=== PATIENT | female | born 1985 | race Native Hawaiian/Other Pacific Islander ===

== ENCOUNTER 2022-03-24 12:59 | Outpatient (CLI) | payer OTHER | END 2022-03-24 19:05 | disposition home or self-care (01) | LOC: MAMMO 12:59 | PROVIDERS: ATTEND Nurse Practitioner Family | DX: N64.4 Mastodynia (principal) | CPT/HCPCS: G0279 ==

== ENCOUNTER 2022-04-03 14:22 | Outpatient (CLI) | payer OTHER | END 2022-04-03 19:52 | disposition home or self-care (01) | LOC: US 14:22 | PROVIDERS: ATTEND Nurse Practitioner Family | DX: R92.8 Other abnormal and inconclusive findings on diagnostic imaging of breast (principal) ==